=== PATIENT | male | born 1950 | race Caucasian/White ===

== ENCOUNTER 2021-09-02 22:21 | Emergency (ER) | payer BC, MEDICARE, OTHER ==
[~2021-09-02] VITALS: Ht 177.8 cm; Wt 127.3 kg
[2021-09-02] MEDS ORDERED: METO50TA7 PO (22:29)
[2021-09-02] MEDS ORDERED: LANTINJ4 SC (22:29)
[2021-09-02] MEDS ORDERED: LOSA100T45 PO (22:30)
[2021-09-02] MEDS ORDERED: AMLO1TAB25 PO (22:30)
[2021-09-02] MEDS ORDERED: HYDR12.55 PO (22:31)
[2021-09-02] MEDS ORDERED: MELO15TA28 PO (22:32)
[2021-09-02] MEDS ORDERED: FENO145T7 PO (22:32)
[2021-09-02] MEDS ORDERED: VENTAER INH (22:33)
[2021-09-02] MEDS ORDERED: NEUR300C PO (22:33)
[2021-09-02] MEDS ORDERED: INSUHUMDS SC (22:41)
[2021-09-02] MEDS ORDERED: ASPI81CH33 PO (22:41)
[2021-09-02 23:23] LABS: BASO # 0.1 10^3/uL (0.0-0.2); BASO % 0.7 % (0.0-1.0); EOS # 0.2 10^3/uL (0.0-0.5); EOS % 2.3 % (0.0-3.0); HEMATOCRIT 41.8 % (42.0-52.0); HEMOGLOBIN 13.8 g/dl (13.5-17.5); LYMPH # 2.5 10^3/uL (1.5-5.0); MEAN CORPUSCULAR HEMOGLOBIN 28.9 pg (27.0-33.0); MEAN CORPUSCULAR VOLUME 87.6 fl (80.0-96.0); MONO # 0.7 10^3/uL (0.0-0.8); MONO % 8.8 % (2.0-8.0); NEUTROPHILS # 4.1 10^3/uL (1.5-8.5); NEUTROPHILS % 54.7 % (36.0-66.0); PLATELET COUNT, AUTOMATED 242 10^3/uL (150-450); RED BLOOD COUNT 4.77 10^6/uL (4.30-6.10); WHITE BLOOD COUNT 7.5 10^3/uL (4.0-10.0)
[2021-09-02] MEDS ORDERED: NITROGLYCERIN 0.4 MG SUBL TABLET SL PRN (23:25)
[2021-09-02] MEDS ORDERED: ASPIRIN 81 MG CHEW TABLET PO ONE (23:25)
[2021-09-02 23:36] LABS: INR 0.96; PROTHROMBIN TIME 13.2 SECONDS (12.7-14.5)
[2021-09-02 23:49] LABS: CK-MB VALUE MASS 8.4 NG/ML (<3.6); MB/CK RELATIVE INDEX 1.36 (< OR =4)
[2021-09-02 23:51] LABS: ALBUMIN 3.7 GM/DL (3.2-5.2); ALT/SGPT 30 U/L (12-78); BILIRUBIN,DIRECT < 0.1 MG/DL (0.0-0.2); BILIRUBIN,TOTAL 0.4 MG/DL (0.2-1.0); BLOOD UREA NITROGEN 29 MG/DL (7-18); CALCIUM LEVEL 9.1 MG/DL (8.8-10.2); CARBON DIOXIDE LEVEL 26 MEQ/L (21-32); CHLORIDE LEVEL 108 MEQ/L (98-107); CREATININE FOR GFR 1.35 MG/DL (0.70-1.30); GLUCOSE, FASTING 185 MG/DL (70-100); LIPASE 137 U/L (73-393); NT-PRO BNP 93 PG/ML (<125); POTASSIUM SERUM 4.3 MEQ/L (3.5-5.1); SODIUM LEVEL 139 MEQ/L (136-145); TOTAL PROTEIN 6.8 GM/DL (6.4-8.2)
[2021-09-02] MEDS ORDERED: ISOVUE-370 76% 100ML VIAL As Ordered ONE (23:54)
[2021-09-03 00:12] LABS: RSV AMPLIFICATION NEGATIVE (NEGATIVE)
[2021-09-03 01:06] LABS: CK-MB VALUE MASS 9.5 NG/ML (<3.6); MB/CK RELATIVE INDEX 1.65 (< OR =4)
[2021-09-03] MEDS ORDERED: HEPARIN DRIP 25,000 UNITS in IV 1 EA IV SCH (01:30)
[2021-09-03] MEDS ORDERED: HEPARIN SOD (PORCINE) 5000UNITS/ML 1ML VIAL/SYRINGE IV PRN (01:30)
[2021-09-03] MEDS ORDERED: HEPARIN SOD (PORCINE) 5000UNITS/ML 1ML VIAL/SYRINGE IV ONE (01:30)
[2021-09-03] MEDS ORDERED: METOPROLOL TART 50 MG TAB PO ONE (01:30)
[2021-09-03 02:01] VITALS: BP 199/90
[2021-09-03 06:01] VITALS: BP 168/72
== END 2021-09-03 06:34 | disposition short-term general hospital (02) ==
LOC: M ED 22:21
DX: I21.4 Non-ST elevation (NSTEMI) myocardial infarction (principal); K80.20 Calculus of gallbladder without cholecystitis without obstruction; I51.9 Heart disease, unspecified; E11.9 Type 2 diabetes mellitus without complications; Z86.718 Personal history of other venous thrombosis and embolism; Z82.49 Family history of ischemic heart disease and other diseases of the circulatory system; Z79.82 Long term (current) use of aspirin; Z79.4 Long term (current) use of insulin; Z79.899 Other long term (current) drug therapy; Z88.8 Allergy status to other drugs, medicaments and biological substances; Z91.030 Bee allergy status
CPT/HCPCS: 71045; 71275; 80048; 80076; 82550; 82553; 83690; 83880; 84484; 85025; 85610; 85730; 87631; 93005; 93041; 94760; 96365; 96366; 99285; J1644; Q9967